=== PATIENT | female | born 1985 | race Caucasian/White ===

== ENCOUNTER 2021-02-21 13:41 | Emergency (ER) | payer OTHER, BC ==
[~2021-02-21] VITALS: Ht 172.7 cm; Wt 86.2 kg
[2021-02-21] MEDS ORDERED: BUPROPION HCL100 MG PO (13:49)
[2021-02-21] MEDS ORDERED: ALLEGRA ALLERG180 MG PO (13:49)
[2021-02-22 08:10] LABS: HCV ANTIBODY <0.1 (0.0-0.9); HIV SCREEN 4TH GENERATION WRFX Non Reactive (Non Reactive)
== END 2021-02-21 14:04 | disposition home or self-care (01) ==
LOC: ER 13:41
PROVIDERS: Physician Assistant
DX: Z77.21 Contact with and (suspected) exposure to potentially hazardous body fluids (principal); Z79.899 Other long term (current) drug therapy; W46.1XXA Contact with contaminated hypodermic needle, initial encounter
CPT/HCPCS: 84460; 86317; 86703; 86803; 87340; 87389; 90471; 90714; 99282-25

== ENCOUNTER 2021-05-28 14:50 | Emergency (ER) | payer OTHER, BC ==
[~2021-05-28] VITALS: Ht 172.7 cm; Wt 86.2 kg
[~2021-05-28 14:50] MED LIST: ALLEGRA ALLERG180 MG PO; BUPROPION HCL100 MG PO
[2021-05-29 08:10] LABS: HCV ANTIBODY <0.1 (0.0-0.9)
[2021-05-29 09:10] LABS: HIV SCREEN 4TH GENERATION WRFX Non Reactive (Non Reactive)
== END 2021-05-28 16:04 | disposition home or self-care (01) ==
LOC: ER 14:50
PROVIDERS: Physician Assistant
DX: S61.233A Puncture wound without foreign body of left middle finger without damage to nail, initial encounter (principal); W46.0XXA Contact with hypodermic needle, initial encounter; Y99.0 Civilian activity done for income or pay
CPT/HCPCS: 84460; 86317; 86703; 86803; 87340; 87389; 99282

== ENCOUNTER → 2022-04-29 | Outpatient (CLI) | payer BC ==
[2022-05-02 03:08] LABS: CHLAMYDIA TRACHOMATIS, NAA Negative (Negative)
== END | disposition home or self-care (01) ==
LOC: LAB 16:59 → LAB SHORT 16:59
PROVIDERS: Family Medicine
DX: Z34.81 Encounter for supervision of other normal pregnancy, first trimester (principal); Z3A.10 10 weeks gestation of pregnancy
CPT/HCPCS: 87086; 87491; 87591

== ENCOUNTER → 2022-10-30 | Outpatient (CLI) | payer BC | END | disposition home or self-care (01) | LOC: LAB SHORT 13:46 → LAB 13:46 | DX: O09.893 Supervision of other high risk pregnancies, third trimester (principal) | CPT/HCPCS: 87081; 87150 ==

== ENCOUNTER 2022-11-28 20:05 | Inpatient (IN) | payer BC ==
[~2022-11-28] VITALS: Ht 172.7 cm; Wt 102.0 kg
[2022-11-28] MEDS ORDERED: ZYRTEC10 M2 PO (20:42)
[2022-11-28] MEDS ORDERED: Budeprion Xl300 MG PO (20:43)
[2022-11-28 20:44] LABS: BASOPHILS ABSOLUTE AUTO 0.04 K/mm3 (0.00-0.23); BASOPHILS PERCENT AUTO 1 % (0-2); EOSINOPHILS ABSOLUTE AUTO 0.06 K/mm3 (0.00-0.68); EOSINOPHILS PERCENT AUTO 1 % (0-6); Hematocrit 40.5 % (33.0-51.0); Hemoglobin 14.3 g/dL (11.5-16.0); IMMATURE GRAN ABSOLUTE AUTO 0.05 K/mm3 (0.00-0.10); IMMATURE GRAN PERCENT AUTO 1 % (0-1); LYMPHOCYTES ABSOLUTE AUTO 1.66 K/mm3 (0.84-5.20); LYMPHOCYTES PERCENT AUTO 20 % (21-46); MONOCYTES ABSOLUTE AUTO 0.78 K/mm3 (0.16-1.47); MONOCYTES PERCENT AUTO 9 % (4-13); Mean Corpuscular HGB 31.7 pg (26.0-34.0); Mean Corpuscular HGB Conc 35.3 g/dL (31.5-36.5); Mean Corpuscular Volume 90 fL (80-100); Mean Platelet Volume 11.1 fL (9.1-12.4); NEUTROPHILS ABSOLUTE AUTO 5.72 K/mm3 (1.96-9.15); NEUTROPHILS PERCENT AUTO 69 % (41-73); Platelet Count 246 K/mm3 (150-400); RDW Coefficient Variation 13.2 % (11.7-14.2); RDW Standard Deviation 43.7 fL (35.1-46.3); Red Blood Cell Count 4.51 M/mm3 (3.80-5.20); White Blood Cell Count 8.31 K/mm3 (4.00-11.30)
[2022-11-28] MEDS ORDERED: MAGNESIUM OXID500 MG PO (20:44)
[2022-11-28] MEDS ORDERED: VITAMIN D31000 UNI1 PO (20:44)
[2022-11-29 11:12] LABS: International Normalized Ratio 0.95
[2022-11-30 06:29] LABS: BASOPHILS ABSOLUTE AUTO 0.04 K/mm3 (0.00-0.23); BASOPHILS PERCENT AUTO 0 % (0-2); EOSINOPHILS ABSOLUTE AUTO 0.11 K/mm3 (0.00-0.68); EOSINOPHILS PERCENT AUTO 1 % (0-6); IMMATURE GRAN ABSOLUTE AUTO 0.05 K/mm3 (0.00-0.10); IMMATURE GRAN PERCENT AUTO 1 % (0-1); LYMPHOCYTES ABSOLUTE AUTO 1.52 K/mm3 (0.84-5.20); LYMPHOCYTES PERCENT AUTO 17 % (21-46); MONOCYTES ABSOLUTE AUTO 0.87 K/mm3 (0.16-1.47); MONOCYTES PERCENT AUTO 10 % (4-13); Mean Corpuscular HGB 31.8 pg (26.0-34.0); Mean Corpuscular HGB Conc 35.1 g/dL (31.5-36.5); Mean Corpuscular Volume 91 fL (80-100); NEUTROPHILS ABSOLUTE AUTO 6.52 K/mm3 (1.96-9.15); NEUTROPHILS PERCENT AUTO 72 % (41-73); Platelet Count 185 K/mm3 (150-400); RDW Coefficient Variation 13.3 % (11.7-14.2); RDW Standard Deviation 44.2 fL (35.1-46.3); Red Blood Cell Count 4.09 M/mm3 (3.80-5.20); White Blood Cell Count 9.11 K/mm3 (4.00-11.30)
--- NOTE | 2022-11-30 07:41 | NUR ---
DISCHARGE INSTRUCTIONS, WRITTEN AND VERBAL, GIVEN TO PT AND , MARIUM. ANSWERED ALL QUESTIONS AND CONCERNS. IV DICONTINUED. FOLLOW UP APPOINTMENT SCHEDULED. PT IS READY FOR DISCHARGE ONCE ASSESSED BY
== END 2022-11-30 10:15 | disposition home or self-care (01) | DRG 805 ==
LOC: OBS 20:05 → BC 20:06 → OBS 20:15 → BC 20:16
PROVIDERS: ADMIT Obstetrics & Gynecology
PROC: 10E0XZZ Delivery of Products of Conception, External Approach (ICD-10-PCS; principal; 2022-11-29)
PROC: 3E0R3BZ Introduction of Anesthetic Agent into Spinal Canal, Percutaneous Approach (ICD-10-PCS; 2022-11-29)
PROC: 00HU33Z Insertion of Infusion Device into Spinal Canal, Percutaneous Approach (ICD-10-PCS; 2022-11-29)
PROC: 10907ZC Drainage of Amniotic Fluid, Therapeutic from Products of Conception, Via Natural or Artificial Opening (ICD-10-PCS; 2022-11-29)
DX: O48.0 Post-term pregnancy (principal); O45.93 Premature separation of placenta, unspecified, third trimester; Z37.0 Single live birth; O71.82 Other specified trauma to perineum and vulva; O76 Abnormality in fetal heart rate and rhythm complicating labor and delivery; O99.344 Other mental disorders complicating childbirth; F41.8 Other specified anxiety disorders; Z3A.40 40 weeks gestation of pregnancy; Z98.890 Other specified postprocedural states; Z79.899 Other long term (current) drug therapy
CPT/HCPCS: 36415; 51702; 85025; 85384; 85610; 85730; 86850; 86900; 86901; A9270; J1885; J2590; J3010; J7120

== ENCOUNTER 2023-02-11 15:03 | Emergency (ER) | payer OTHER, BC ==
[~2023-02-11] VITALS: Ht 172.7 cm; Wt 97.5 kg
[~2023-02-11 15:03] MED LIST changes: +Budeprion Xl300 MG PO; +MAGNESIUM OXID500 MG PO; +VITAMIN D31000 UNI1 PO; +ZYRTEC10 M2 PO
[2023-02-11 15:08] VITALS: BP 109/76
[2023-02-12 08:11] LABS: HCV ANTIBODY Non Reactive (Non Reactive); HIV AB/P24 AG SCREEN Non Reactive (Non Reactive)
== END 2023-02-11 15:29 ==
LOC: ER 15:03
PROVIDERS: Physician Assistant
DX: T14.8XXA Other injury of unspecified body region, initial encounter (principal); W46.0XXA Contact with hypodermic needle, initial encounter; Z79.899 Other long term (current) drug therapy
CPT/HCPCS: 84460; 86317; 86703; 86803; 87340; 87389

== ENCOUNTER → 2023-04-22 | Outpatient (CLI) | payer BC ==
[2023-04-23 16:16] LABS: HPV 16 Negative (Negative); HPV 18 Negative (Negative); HPV OTHER HR TYPES Negative (Negative)
== END | disposition home or self-care (01) ==
LOC: LAB SHORT 11:44 → LAB 11:44
PROVIDERS: Family Medicine
DX: Z12.4 Encounter for screening for malignant neoplasm of cervix (principal)
CPT/HCPCS: 87624; G0145

== ENCOUNTER 2024-09-07 06:00 | Day surgery (SDC) | payer BC ==
[2024-09-07] VITALS (8 sets, daily range): BP systolic 106–125; BP diastolic 68–85
[~2024-09-07] VITALS: Ht 172.7 cm; Wt 88.6 kg
[~2024-09-07 06:00] MED LIST changes: +BUPR150ER PO; -Budeprion Xl300 MG PO
[2024-09-07] MEDS ORDERED: CefOXitin Sodium 2,000 MG in NS 50 ML IV SCH (06:25)
[2024-09-07] MEDS ORDERED: Indocyanine Green 25 MG Vial IV ONE (06:25)
[2024-09-07] MEDS ORDERED: Lactated Ringer's 1,000 ML IV SCH (06:25)
[2024-09-07] MEDS ORDERED: CefOXitin 2000 mg Vial ONE (06:35)
[2024-09-07] MEDS ORDERED: Bupivacaine 0.5% HCl 5 MG/ML 30MLVIAL ONE (07:11)
[2024-09-07] MEDS ORDERED: Midazolam HCl 1MG / ML 2ML Vial ONE (07:16)
[2024-09-07] MEDS ORDERED: propofoL 20 ML IV ONE (07:19)
[2024-09-07] MEDS ORDERED: FentaNYL Citrate 50 MCG/ML 2 ML Injection ONE ×2 (07:19→08:08)
[2024-09-07] MEDS ORDERED: Midazolam HCl 1MG / ML 2ML Vial IV ONE (07:35)
[2024-09-07] MEDS ORDERED: Phenylephrine HCl 100 MCG/ML-NS 10MLSYR (1MG/10ML) ONE (07:45)
[2024-09-07] MEDS ORDERED: Glycopyrrolate 0.2 MG/ML 5ML VIAL ONE (07:46)
[2024-09-07] MEDS ORDERED: Dexamethasone Sod Phos 10 MG/ML 1ML VIAL ONE (07:47)
[2024-09-07] MEDS ORDERED: Ondansetron HCl 2 MG / ML 2ML Vial ONE (07:47)
[2024-09-07] MEDS ORDERED: Rocuronium Bromide 10 MG/ML 5ML Injection IV ONE (08:08)
[2024-09-07] MEDS ORDERED: Sugammadex Sodium 200 MG/2ML SDV (100 MG/ML) ONE (08:50)
[2024-09-07] MEDS ORDERED: Ketorolac Tromethamine 30mg Vial ONE (08:51)
[2024-09-07] MEDS ORDERED: OxyCODONE 5 mg/Acetamin 325 mg TABLET PO PRN (09:05)
--- NOTE | 2024-09-07 10:38 | NUR ---
Discharge instructions reviewed with patient. Patient verbalizes understanding. Copy given to patient to take home. Prescription given to . Dressings c/d/i. Voided prior to discharge. Moderate vaginal bleeding, re pads provided. Patient States Post-Procedure ride home has been arranged. Discharged via wheelchair to private car for ride home.
== END 2024-09-07 10:40 | disposition home or self-care (01) ==
LOC: ORSCMMR 06:00 → ORD 07:30 → ORSCMMR 07:30
PROVIDERS: Surgery
PROC: 0FT44ZZ Resection of Gallbladder, Percutaneous Endoscopic Approach (ICD-10-PCS; principal; 2024-09-07 07:30)
PROC: 8E0W4CZ Robotic Assisted Procedure of Trunk Region, Percutaneous Endoscopic Approach (ICD-10-PCS; principal; 2024-09-07 07:30)
PROC: 0UT74ZZ Resection of Bilateral Fallopian Tubes, Percutaneous Endoscopic Approach (ICD-10-PCS; principal; 2024-09-07 07:30)
PROC: BF031ZZ Plain Radiography of Gallbladder and Bile Ducts using Low Osmolar Contrast (ICD-10-PCS; principal; 2024-09-07 07:30)
DX: K80.20 Calculus of gallbladder without cholecystitis without obstruction (principal); Z30.2 Encounter for sterilization
CPT/HCPCS: 88302; 88304; A9270; J0694; J1100; J1885; J2250; J2371; J2405; J2704; J3010; J7120

== ENCOUNTER 2024-10-25 09:49 | Emergency (ER) | payer OTHER, BC ==
[~2024-10-25] VITALS: Ht 172.7 cm; Wt 86.2 kg
[2024-10-25 09:53] VITALS: BP 125/78
[2024-10-26 12:18] LABS: HEPATITIS B SURFACE ANTIBODY 433.69 IU/L
[2024-10-26 16:04] LABS: HIV 1,2 COMBO ANTIGEN/ANTIBODY Negative (Negative)
[2024-10-27 16:56] LABS: HCV QNT BY NAAT (IU/ML) Not Detected; HCV QNT BY NAAT (LOG IU/ML) Not Detected; HCV QNT BY NAAT INTERP Not Detected (Not Detected)
== END 2024-10-25 10:12 | disposition home or self-care (01) ==
LOC: ER 09:49
PROVIDERS: Student in an Organized Health Care Education/Training Program
DX: S61.231A Puncture wound without foreign body of left index finger without damage to nail, initial encounter (principal); W46.1XXA Contact with contaminated hypodermic needle, initial encounter; Z77.21 Contact with and (suspected) exposure to potentially hazardous body fluids; F32.A Depression, unspecified; Z79.899 Other long term (current) drug therapy
CPT/HCPCS: 84460; 86703; 86803; 87340; 87389; 87522; 99282